=== PATIENT | female | born 1960 | race African-American/Black ===

== ENCOUNTER 2017-11-30 16:44 | Inpatient (IN) | payer OTHER ==
[~2017-11-30] VITALS: Ht 162.6 cm; Wt 117.9 kg
[~2017-11-30 16:44] MED LIST: VIC
[2017-11-30] MEDS ORDERED: PIPERACILLIN/TAZ 3.375G PREMIX 50 ML IV ONE (23:30)
[2017-11-30] MEDS ORDERED: VANCOMYCIN 1 G PREMIX 200 ML IV ONE (23:30)
[2017-11-30] MEDS ORDERED: SODIUM CHLORIDE 0.9% 1000ML BAG (SEPSIS BOLUS) IV ONE (23:30)
[2017-11-30] MEDS ORDERED: MORPHINE SULFATE 4 MG/ML CPJ (NOT FOR IM USE) IV STA (23:32)
[2017-11-30] MEDS ORDERED: ONDANSETRON HCL 4MG/2ML VIAL IV STA (23:32)
[2017-11-30 23:53] LABS: HEMATOCRIT. 38.2 % (36.0-48.0); HEMOGLOBIN. 12.9 g/dL (12.0-16.0); MEAN CORPUSCULAR HEMOGLOBIN 29.4 pg (28.0-32.0); MEAN CORPUSCULAR VOLUME 86.9 fL (81.0-99.0); RED CELL DISTRIBUTION WIDTH 14.5 % (11.6-14.6)
[2017-12-01 00:02] LABS: INR 1.1; PROTHROMBIN TIME 11.4 sec (9.4-11.6)
[2017-12-01 00:09] LABS: CHLORIDE 104 mEq/L (98-107)
[2017-12-01 00:13] LABS: HCG SCREEN NEGATIVE
[2017-12-01 00:18] LABS: CARBON DIOXIDE 22 mEq/L (21-32)
[2017-12-01 00:55] LABS: PLATELET 292 x1000/uL (130-400)
[2017-12-01 01:00] LABS: PLATELET ESTIMATE NORMAL
[2017-12-01] MEDS ORDERED: LEVOFLOXACIN 750MG PREMIX 150 ML IV ONE (02:30)
[2017-12-01] MEDS ORDERED: SODIUM CHLORIDE 0.9% 1,000 ML IV ONE (02:33)
[2017-12-01] MEDS ORDERED: KETOROLAC 30MG/ML VIAL IV ONE (02:45)
[2017-12-01 03:07] LABS: CLARITY URINE TURBID (CLEAR); COLOR URINE DARK YELLOW (YELLOW); KETONES URINE 2+ (NEGATIVE); LEUKOCYTE ESTERASE URINE NEGATIVE (NEGATIVE); NITRITE URINE NEGATIVE (NEGATIVE); OCCULT BLOOD URINE NEGATIVE (NEGATIVE); PROTEIN URINE 1+ (NEGATIVE); SPECIFIC GRAVITY URINE 1.035 (1.005-1.030)
[2017-12-01] MEDS ORDERED: MORPHINE SULFATE 4 MG/ML CPJ (NOT FOR IM USE) IV STA (05:12)
[2017-12-01] MEDS ORDERED: ONDANSETRON HCL 4MG/2ML VIAL IV STA (05:12)
[2017-12-01] MEDS ORDERED: SODIUM CHLORIDE 0.45% 1,000 ML IV SCH (05:52)
[2017-12-01] MEDS ORDERED: CLONIDINE 0.1MG TABLET PO PRN (06:00)
[2017-12-01] MEDS ORDERED: LORAZEPAM 2MG/ML CPJ IV PRN (06:00)
[2017-12-01] MEDS ORDERED: DIPHENHYDRAMINE 50MG/ML VIAL IV PRN (06:00)
[2017-12-01] MEDS ORDERED: MORPHINE SULFATE 2 MG/ML CPJ (NOT FOR IM USE) IV PRN (06:00)
[2017-12-01] MEDS ORDERED: ENOXAPARIN 40MG/0.4ML SYR SUBCUT SCH (06:00)
[2017-12-01] MEDS ORDERED: PIPERACILLIN/TAZ 3.375G PREMIX 50 ML IV SCH (06:00)
[2017-12-01] MEDS ORDERED: IPRATROPIUM/ALBUTEROL 0.5-3(2.5)MG/3ML NEB INH PRN (06:00)
[2017-12-01] MEDS ORDERED: GUAIFENESIN 200MG/10ML SUGAR FREE UDC PO PRN (06:00)
[2017-12-01] MEDS ORDERED: MAGNESIUM/ALUMINUM HYDROXIDE/SIMETHICONE 30ML UDC PO PRN (06:00)
[2017-12-01] MEDS ORDERED: ONDANSETRON HCL 4MG/2ML VIAL IV PRN ×3 (06:00→13:30)
[2017-12-01] MEDS ORDERED: HYDROCODONE/APAP 7.5/325MG 1 TAB TABLET PO PRN (06:00)
[2017-12-01] MEDS ORDERED: ACETAMINOPHEN 325MG TABLET PO PRN (06:00)
[2017-12-01] MEDS ORDERED: DOCUSATE SODIUM 100MG CAPSULE PO PRN (06:00)
[2017-12-01] MEDS: ASPIRIN 81MG EC TABLET PO SCH (06:09)
[2017-12-01 06:39] LABS: CARBON DIOXIDE 22 mEq/L (21-32); CHLORIDE 106 mEq/L (98-107)
[2017-12-01 07:15] LABS: TROPONIN I < 0.02 ng/mL (0.00-0.04)
[2017-12-01] MEDS ORDERED: PROPOFOL 200MG/20ML VIAL IV ONE ×2 (11:48→13:04)
[2017-12-01] MEDS ORDERED: ONDANSETRON HCL 4MG/2ML VIAL ONE (11:48)
[2017-12-01] MEDS ORDERED: FENTANYL CITRATE/PF 50MCG/ML 2ML VIAL ONE ×2 (11:48→12:43)
[2017-12-01] MEDS ORDERED: DEXAMETHASONE 4MG/ML 1ML VIAL ONE (11:48)
[2017-12-01] MEDS ORDERED: MIDAZOLAM HCL 2 MG/2 ML VIAL ONE (11:48)
[2017-12-01] MEDS ORDERED: LIDOCAINE HCL/PF 1% 10 MG/ML 5ML VIAL ONE (11:48)
[2017-12-01] MEDS ORDERED: MORPHINE SULFATE 4 MG/ML CPJ (NOT FOR IM USE) IV PRN (12:30)
[2017-12-01] MEDS ORDERED: HYDROCODONE/ACETAMINOPHEN 5/325MG TABLET PO PRN ×2 (12:30)
[2017-12-01] MEDS ORDERED: HYDROMORPHONE HCL/PF 2MG/ML (OR) ONE (13:15)
[2017-12-01] MEDS ORDERED: SODIUM CHLORIDE 0.9% 10ML VIAL ONE (13:16)
[2017-12-01] MEDS ORDERED: LABETALOL HCL 20MG/4ML CARPUJECT IV PRN (13:30)
[2017-12-01] MEDS ORDERED: HYDROMORPHONE HCL/PF 2MG/ML CPJ IV PRN (13:30)
[2017-12-01] MEDS ORDERED: MEPERIDINE HCL/PF 25MG/ML CPJ IV PRN (13:30)
[2017-12-01 16:00] VITALS: BP 129/61
[2017-12-01] MEDS ORDERED: TETANUS, DIPHTHERIA, PERTUSSIS VAC/PF 0.5ML (>7YR OLD) IM ONE (16:00)
[2017-12-01] MEDS ORDERED: [UNRECOGNIZED DRUG - OTHER] XX SCH (16:00)
[2017-12-01 16:05] VITALS: BP 129/61
[2017-12-01] MEDS: MORPHINE SULFATE 4 MG/ML CPJ (NOT FOR IM USE) IV PRN ×3 (16:35→23:20)
[2017-12-01] MEDS ORDERED: NA PHOS,M-B/NA PHOS,DI-BA ENEMA 118ML PR PRN (17:00)
[2017-12-01] MEDS ORDERED: VANCOMYCIN 1500MG in DEXTROSE 5% WATER 250ML IV NR (18:00)
[2017-12-01] MEDS: PIPERACILLIN/TAZ 3.375G PREMIX 50 ML IV SCH (18:19)
[2017-12-01] MEDS ORDERED: DEXT 5%/0.45% NACL KCL 20MEQ/L 1,000 ML IV SCH (18:30)
[2017-12-01 20:00] VITALS: BP 136/66
[2017-12-01] MEDS: ENOXAPARIN 30MG/0.3ML SYR SUBCUT SCH (20:25)
[2017-12-02] VITALS: BP 130/63
[2017-12-02] MEDS: PIPERACILLIN/TAZ 3.375G PREMIX 50 ML IV SCH ×4 (01:53→22:14)
[2017-12-02] MEDS: MORPHINE SULFATE 4 MG/ML CPJ (NOT FOR IM USE) IV PRN ×8 (02:38→23:57)
[2017-12-02 04:00] VITALS: BP 138/72
[2017-12-02] MEDS: VANCOMYCIN 1250MG in DEXTROSE 5% WATER 250ML IV SCH ×2 (05:32→17:47)
[2017-12-02 07:52] LABS: BASOPHILS % 0.1 % (0.0-2.0); HEMATOCRIT. 31.4 % (36.0-48.0); HEMOGLOBIN. 10.4 g/dL (12.0-16.0); LYMPHOCYTES % 9.8 % (20.0-50.0); MEAN CORPUSCULAR HEMOGLOBIN 28.9 pg (28.0-32.0); MEAN CORPUSCULAR VOLUME 86.8 fL (81.0-99.0); MEAN PLATELET VOLUME 8.6 fl (7.4-10.4); NEUTROPHILS % 84.1 % (40.0-76.0); PLATELET 263 x1000/uL (130-400); RED BLOOD CELL COUNT 3.61 mill/uL (4.2-5.4); RED CELL DISTRIBUTION WIDTH 14.5 % (11.6-14.6)
[2017-12-02 08:00] VITALS: BP 142/66
[2017-12-02 08:10] LABS: CARBON DIOXIDE 22 mEq/L (21-32); CHLORIDE 108 mEq/L (98-107); HDL CHOLESTEROL 45 mg/dL (40-59); LDL CHOLESTEROL 112 mg/dL (5-100)
[2017-12-02] MEDS: ASPIRIN 81MG EC TABLET PO SCH (08:39)
[2017-12-02] MEDS: ENOXAPARIN 30MG/0.3ML SYR SUBCUT SCH ×2 (08:40→20:57)
[2017-12-02] MEDS: DEXT 5%/0.45% NACL KCL 20MEQ/L 1,000 ML IV SCH ×2 (10:23→21:05)
[2017-12-02 12:00] VITALS: BP 136/63
[2017-12-02 16:00] VITALS: BP 126/56
[2017-12-02 20:00] VITALS: BP 129/88
[2017-12-03] VITALS: BP 124/48
[2017-12-03] MEDS: MORPHINE SULFATE 4 MG/ML CPJ (NOT FOR IM USE) IV PRN ×2 (03:02→06:11)
[2017-12-03] MEDS: PIPERACILLIN/TAZ 3.375G PREMIX 50 ML IV SCH ×2 (03:59→10:14)
[2017-12-03 04:00] VITALS: BP 155/71
[2017-12-03 04:12] LABS: BASOPHILS % 0.5 % (0.0-2.0); EOSINOPHILS % 0.7 % (0.0-5.0); HEMATOCRIT. 30.2 % (36.0-48.0); HEMOGLOBIN. 9.8 g/dL (12.0-16.0); LYMPHOCYTES % 25.2 % (20.0-50.0); MEAN CORPUSCULAR HEMOGLOBIN 28.4 pg (28.0-32.0); MEAN CORPUSCULAR VOLUME 87.3 fL (81.0-99.0); MEAN PLATELET VOLUME 8.5 fl (7.4-10.4); MONOCYTES % 6.7 % (2.0-8.0); NEUTROPHILS % 66.9 % (40.0-76.0); PLATELET 293 x1000/uL (130-400); RED BLOOD CELL COUNT 3.46 mill/uL (4.2-5.4); RED CELL DISTRIBUTION WIDTH 14.5 % (11.6-14.6)
[2017-12-03 04:13] LABS: CHLORIDE 113 mEq/L (98-107)
[2017-12-03 04:20] LABS: CARBON DIOXIDE 25 mEq/L (21-32)
[2017-12-03] MEDS: VANCOMYCIN 1250MG in DEXTROSE 5% WATER 250ML IV SCH (06:12)
[2017-12-03 08:00] VITALS: BP 154/68
[2017-12-03] MEDS: ASPIRIN 81MG EC TABLET PO SCH (08:59)
[2017-12-03] MEDS: ENOXAPARIN 30MG/0.3ML SYR SUBCUT SCH (09:03)
[2017-12-03] MEDS: DEXT 5%/0.45% NACL KCL 20MEQ/L 1,000 ML IV SCH (09:14)
[2017-12-03 09:39] VITALS: BP 141/70
[2017-12-03 12:00] VITALS: BP 133/63
[2017-12-03] MEDS ORDERED: VANCOMYCIN 2,000 MG in SODIUM CHLORIDE 0.9% 500 ML IV SCH (14:00)
[2017-12-03] MEDS ORDERED: ENOXAPARIN 40MG/0.4ML SYR SUBCUT SCH (21:00)
== END 2017-12-03 15:27 | disposition home or self-care (01) | DRG 746 ==
LOC: ER 18:22 → 7WST 12-01 03:26 → ENRESERV 12-01 08:52
PROVIDERS: ADMIT Internal Medicine; ATTEND Internal Medicine
PROC: 0D9P0ZZ Drainage of Rectum, Open Approach (ICD-10-PCS; 2017-12-01)
PROC: 0U9G0ZZ Drainage of Vagina, Open Approach (ICD-10-PCS; principal; 2017-12-01 10:00)
DX: N76.0 Acute vaginitis (principal); K61.2 Anorectal abscess; R65.10 Systemic inflammatory response syndrome (SIRS) of non-infectious origin without acute organ dysfunction; Z68.41 Body mass index [BMI] 40.0-44.9, adult; E86.0 Dehydration; E66.3 Overweight; J45.909 Unspecified asthma, uncomplicated; I10 Essential (primary) hypertension; Z90.710 Acquired absence of both cervix and uterus
CPT/HCPCS: 36415; 71045; 74176; 80048; 80053; 80061; 80202; 81001; 81003; 83605; 83690; 84484; 84703; 85025; 85610; 86850; 86900; 87040; 87070; 87075; 87077; 87086; 87205; 90715; 93005; 96365; 96366; 96375; 96376; 99285; A4216; J1100; J1170; J1650; J1885; J1956; J2175; J2250; J2270; J2405; J2543; J2704; J3010; J3370; J3490; J7030; J7040; J7060

== ENCOUNTER 2019-10-28 16:57 | Emergency (ER) | payer OTHER ==
[~2019-10-28] VITALS: Ht 165.1 cm; Wt 109.0 kg
[2019-10-28] MEDS ORDERED: ACETAMINOPHEN 325MG TABLET PO STA (18:17)
[2019-10-28] MEDS ORDERED: KETOROLAC 30MG/ML VIAL IV STA (18:17)
[2019-10-28 18:32] LABS: BASOPHILS % 0.9 % (0.0-2.0); EOSINOPHILS % 1.6 % (0.0-5.0); HEMOGLOBIN. 14.6 g/dL (12.0-16.0); LYMPHOCYTES % 31.8 % (20.0-50.0); MEAN CORPUSCULAR VOLUME 87.5 fL (81.0-99.0); MEAN PLATELET VOLUME 8.8 fl (7.4-10.4); MONOCYTES % 5.8 % (2.0-8.0); NEUTROPHILS % 59.9 % (40.0-76.0); PLATELET 294 x1000/uL (130-400); RED BLOOD CELL COUNT 5.03 mill/uL (4.2-5.4); RED CELL DISTRIBUTION WIDTH 14.7 % (11.6-14.6)
[2019-10-28 18:37] LABS: CHLORIDE 110 mEq/L (98-107)
[2019-10-28 18:45] LABS: CLARITY URINE CLOUDY (CLEAR); COLOR URINE YELLOW (YELLOW); KETONES URINE 1+ (NEGATIVE); LEUKOCYTE ESTERASE URINE TRACE (NEGATIVE); NITRITE URINE NEGATIVE (NEGATIVE); OCCULT BLOOD URINE NEGATIVE (NEGATIVE); PH URINE 5.5 (4.5-8.0); PROTEIN URINE TRACE (NEGATIVE); SPECIFIC GRAVITY URINE 1.026 (1.005-1.030)
[2019-10-28] MEDS ORDERED: CEFTRIAXONE 1 G PREMIX 50 ML IV ONE (19:00)
[2019-10-28] MEDS ORDERED: IOHEXOL-300 100 ML BOTTLE ONE (19:45)
[2019-10-28 22:54] VITALS: BP 152/80
== END 2019-10-28 23:05 | disposition home or self-care (01) ==
LOC: ER 16:57
DX: R10.30 Lower abdominal pain, unspecified (principal); N39.0 Urinary tract infection, site not specified; J45.909 Unspecified asthma, uncomplicated; I10 Essential (primary) hypertension; Z90.710 Acquired absence of both cervix and uterus
CPT/HCPCS: 36415; 74177; 80053; 81003; 83690; 85025; 96365; 96375; 99284; J0696; J1885; Q9967

== ENCOUNTER 2020-01-03 08:02 | Emergency (ER) | payer SELFPAY ==
[~2020-01-03] VITALS: Ht 165.1 cm; Wt 120.0 kg
[2020-01-03] MEDS ORDERED: ONDANSETRON 4MG ODT PO STA (10:29)
[2020-01-03] MEDS ORDERED: HYDROCODONE/ACETAMINOPHEN 5/325MG TABLET PO ONE (10:30)
[2020-01-03 11:04] LABS: CLARITY URINE CLOUDY (CLEAR); COLOR URINE YELLOW (YELLOW); KETONES URINE TRACE (NEGATIVE); LEUKOCYTE ESTERASE URINE NEGATIVE (NEGATIVE); NITRITE URINE NEGATIVE (NEGATIVE); OCCULT BLOOD URINE NEGATIVE (NEGATIVE); PROTEIN URINE NEGATIVE (NEGATIVE); UROBILINOGEN URINE 0.2 E.U./dL (0.2-1.0)
[2020-01-03 11:04] LABS: BASOPHILS % 1.1 % (0.0-2.0); EOSINOPHILS % 2.5 % (0.0-5.0); HEMATOCRIT. 43.6 % (36.0-48.0); HEMOGLOBIN. 14.5 g/dL (12.0-16.0); LYMPHOCYTES % 30.1 % (20.0-50.0); MEAN CORPUSCULAR HEMOGLOBIN 29.3 pg (28.0-32.0); MEAN CORPUSCULAR VOLUME 87.9 fL (81.0-99.0); MEAN PLATELET VOLUME 8.6 fl (7.4-10.4); MONOCYTES % 4.2 % (2.0-8.0); NEUTROPHILS % 62.1 % (40.0-76.0); PLATELET 267 x1000/uL (130-400); RED BLOOD CELL COUNT 4.96 mill/uL (4.2-5.4); RED CELL DISTRIBUTION WIDTH 14.7 % (11.6-14.6)
[2020-01-03 11:09] LABS: CHLORIDE 112 mEq/L (98-107); PROTHROMBIN TIME 10.7 sec (9.6-11.0)
[2020-01-03] MEDS ORDERED: ACETAMINOPHEN 325MG TABLET PO ONE (11:30)
[2020-01-03 11:44] VITALS: BP 164/81
== END 2020-01-03 11:45 | disposition home or self-care (01) ==
LOC: ER 08:27
DX: N80.0 Endometriosis of uterus (principal); I10 Essential (primary) hypertension; J45.909 Unspecified asthma, uncomplicated; Z90.710 Acquired absence of both cervix and uterus
CPT/HCPCS: 36415; 80053; 81003; 81025; 83690; 85025; 85610; 99283; Q0162

== ENCOUNTER 2020-04-21 06:39 | Emergency (ER) | payer MEDICAID ==
[~2020-04-21] VITALS: Ht 175.3 cm; Wt 110.0 kg
[2020-04-21] MEDS ORDERED: SODIUM CHLORIDE 0.9% 1,000 ML IV ONE (07:13)
[2020-04-21] MEDS ORDERED: ONDANSETRON HCL 4MG/2ML INJ IV STA (07:13)
[2020-04-21] MEDS ORDERED: MORPHINE SULFATE 4 MG/ML CPJ (NOT FOR IM USE) IV STA (07:13)
[2020-04-21] MEDS ORDERED: CLONIDINE 0.1MG TABLET PO ONE (09:00)
[2020-04-21 09:26] LABS: CLARITY URINE CLEAR (CLEAR); COLOR URINE YELLOW (YELLOW); KETONES URINE NEGATIVE (NEGATIVE); LEUKOCYTE ESTERASE URINE NEGATIVE (NEGATIVE); NITRITE URINE NEGATIVE (NEGATIVE); OCCULT BLOOD URINE NEGATIVE (NEGATIVE); PH URINE 5.5 (4.5-8.0); PROTEIN URINE NEGATIVE (NEGATIVE); SPECIFIC GRAVITY URINE 1.028 (1.005-1.030); UROBILINOGEN URINE 0.2 E.U./dL (0.2-1.0)
[2020-04-21 09:30] VITALS: BP 151/58
== END 2020-04-21 10:26 | disposition home or self-care (01) ==
LOC: ER 06:39
DX: N80.9 Endometriosis, unspecified (principal); J45.909 Unspecified asthma, uncomplicated; I10 Essential (primary) hypertension
CPT/HCPCS: 76830; 76856; 81003; 96374; 96375; 99284; J2270; J2405; J7030

== ENCOUNTER 2020-07-24 13:23 | Emergency (ER) | payer MEDICAID ==
[~2020-07-24] VITALS: Ht 165.1 cm; Wt 116.0 kg
[2020-07-24] MEDS ORDERED: MORPHINE SULFATE 4 MG/ML CPJ (NOT FOR IM USE) IV STA (14:34)
[2020-07-24] MEDS ORDERED: ONDANSETRON HCL 4MG/2ML INJ IV STA (14:34)
[2020-07-24 15:08] LABS: CHLORIDE 108 mEq/L (98-107)
[2020-07-24 15:13] LABS: BASOPHILS % 0.8 % (0.0-2.0); HEMATOCRIT. 43.9 % (36.0-48.0); HEMOGLOBIN. 14.8 g/dL (12.0-16.0); LYMPHOCYTES % 28.5 % (20.0-50.0); MEAN CORPUSCULAR HEMOGLOBIN 29.2 pg (28.0-32.0); MEAN CORPUSCULAR VOLUME 86.5 fL (81.0-99.0); MONOCYTES % 4.8 % (2.0-8.0); NEUTROPHILS % 63.9 % (40.0-76.0); PLATELET 256 x1000/uL (130-400); RED BLOOD CELL COUNT 5.07 mill/uL (4.2-5.4)
[2020-07-24 15:22] LABS: PROTHROMBIN TIME 10.9 sec (9.6-11.0)
[2020-07-24 15:28] LABS: CLARITY URINE CLEAR (CLEAR); COLOR URINE YELLOW (YELLOW); KETONES URINE NEGATIVE (NEGATIVE); LEUKOCYTE ESTERASE URINE NEGATIVE (NEGATIVE); NITRITE URINE NEGATIVE (NEGATIVE); OCCULT BLOOD URINE NEGATIVE (NEGATIVE); PH URINE 5.5 (4.5-8.0); PROTEIN URINE NEGATIVE (NEGATIVE); SPECIFIC GRAVITY URINE 1.019 (1.005-1.030); UROBILINOGEN URINE 0.2 E.U./dL (0.2-1.0)
[2020-07-24] MEDS ORDERED: MORPHINE SULFATE 4 MG/ML CPJ (NOT FOR IM USE) IV ONE (16:45)
[2020-07-24 16:49] VITALS: BP 146/100
== END 2020-07-24 19:01 | disposition home or self-care (01) ==
LOC: ER 13:54
DX: N80.9 Endometriosis, unspecified (principal); J45.909 Unspecified asthma, uncomplicated; Z90.710 Acquired absence of both cervix and uterus; Z98.890 Other specified postprocedural states; Z88.6 Allergy status to analgesic agent
CPT/HCPCS: 36415; 74176; 80053; 81003; 83690; 85025; 85610; 93005; 96374; 96375; 96376; 99285; J2270; J2405